=== PATIENT | male | born 1990 | race Two or more races ===

== ENCOUNTER 2024-08-04 06:45 | Day surgery (SDC) | payer MEDICAID, SELFPAY ==
[2024-08-04] VITALS (10 sets, daily range): BP systolic 114–147; BP diastolic 75–95; PULSE 73–117; RESP 12–25; TEMP 36.4–36.6; O2SAT 94–100; BMI 30.2
[2024-08-04] MEDS: DiphenhydrAMINE INJ 50 MG/ML VIAL 25 MG IV (07:32)
[2024-08-04] MEDS: MIDAZOLAM INJ 1 MG/ML VIAL 2 ML (ASD USE ONLY) 2 MG IV (07:32)
[2024-08-04] MEDS: fentaNYL CIT INJ 50 mCg/ML AMP 2ML (ASD USE ONLY) IV (07:32)
== END 2024-08-04 08:35 | disposition home or self-care (01) ==
PROVIDERS: PCP Physician Assistant; Referring Provider Surgery; Visit Provider Surgery
PROC: 0DBE8ZX Excision of Large Intestine, Via Natural or Artificial Opening Endoscopic, Diagnostic (ICD-10-PCS; CPT 45380; principal; 2024-08-04 07:30)
DX: K64.1 Second degree hemorrhoids (principal); K57.31 Diverticulosis of large intestine without perforation or abscess with bleeding
CPT/HCPCS: 45378; J1200; J2250; J3010